=== PATIENT | male | born 2000 | race Hispanic/Latino ===

== ENCOUNTER 2022-05-08 10:55 | Emergency (ER) | payer MEDICAID, OTHER ==
[~2022-05-08] VITALS: Ht 172.7 cm; Wt 83.9 kg
[2022-05-08] MEDS ORDERED: CLINDAMYCIN IVPB 300MG/50ML 50 ML IV STA (10:59)
[2022-05-08] MEDS ORDERED: TETANUS/DIPHTHERIA TOXOID [ADULT] 0.5 ML VIAL IM STA (10:59)
[2022-05-08 11:02] VITALS: BP 135/74
[2022-05-08] MEDS ORDERED: CLIN-141 PO (13:15)
== END 2022-05-08 13:30 | disposition home or self-care (01) ==
LOC: EDSEX 10:55 → EDH 10:55
DX: S00.01XA Abrasion of scalp, initial encounter (principal); Z88.0 Allergy status to penicillin; V89.2XXA Person injured in unspecified motor-vehicle accident, traffic, initial encounter; Y92.488 Other paved roadways as the place of occurrence of the external cause; Y93.89 Activity, other specified; Y99.8 Other external cause status
CPT/HCPCS: 99284; 70450; 96365; 73600; 73562; 72100; 72125; S0077; 96360; J3490